=== PATIENT | female | born 1985 | race Caucasian/White ===

== ENCOUNTER → 2017-01-22 | Outpatient (CLI) | payer OTHER | LOC: US 10:00 | DX: R10.0 Acute abdomen (principal); K83.8 Other specified diseases of biliary tract | CPT/HCPCS: 76705 ==

== ENCOUNTER → 2017-02-25 | Outpatient (CLI) | payer OTHER | LOC: RAD 14:27 | DX: R10.0 Acute abdomen (principal) | CPT/HCPCS: 74022; 84703 ==